=== PATIENT | male | born 1970 | race Asian ===

== ENCOUNTER → 2016-11-16 | Outpatient (CLI) | payer OTHER ==
--- NOTE | 2016-11-16 15:42 | KCIC ---
Examination: MRI of the left knee without contrast. HISTORY History of left knee pain in the lateral aspect. COMPARISON None available. TECHNIQUE Multiplanar, multisequence MR imaging of the left knee was performed without contrast Findings: The anterior cruciate ligament, posterior cruciate ligament appear intact. The medial meniscus is intact. There is mild blunting of the junction of the body and posterior horn of the lateral meniscus particularly in the undersurface best visualized on series 6 image #8 and series 8 image #9 likely tear of the lateral meniscus. The medial collateral ligament is intact of the lateral collateral ligamentous complex including the fibular collateral ligament, biceps femoris tendon, popliteus tendon appear intact. The extensor mechanism is intact. There is minimal increased signal identified at the attachment of the patellar tendon to the patella likely mild tendinosis. Small knee joint effusion is identified. The medial, lateral retinacula are intact. Minimal trabecular edema identified in the lateral tibial plateau region. There is minimal superficial fraying of cartilage identified in the lateral compartment. The cartilage in the medial, patellofemoral compartment grossly appears unremarkable. IMPRESSION - Small subtle blunting appearance of the junction of the body and posterior horn of the lateral meniscus likely a small tear of the lateral meniscus. - Mild knee joint effusion. - Grade 1 chondromalacia lateral compartment. - Probable mild patellar tendinosis. Electronically signed by: Kayode Zarate (Nov 16, 2016 15:41:35)
== END | disposition home or self-care (01) ==
LOC: KCIC MRI 14:20
PROVIDERS: ATTEND Family Medicine
DX: M25.562 Pain in left knee (principal); M25.462 Effusion, left knee
CPT/HCPCS: 73721